=== PATIENT | male | born 1980 | race Caucasian/White ===

== ENCOUNTER 2019-01-27 21:51 | Emergency (ER) | payer OTHER ==
[2019-01-27] MEDS ORDERED: IPRATROPIUM/ALBUTEROL 3 ML DEYVIAL IH ONE (22:31)
--- NOTE | 2019-01-27 22:51 | EDPHY ---
H & P Stated Complaint: ST, Cough Time Seen by Provider: 01/27/19 22:24 HPI/ROS: HPI The patient presents with cough associated with shortness of breath and sore throat. The patient says he has been smoking cigarettes heavily over the last 2 weeks, going through a break-up been smoking about 1/2 pack of cigarettes a day. He has a cough since he began smoking which is dry and mild. Last night he was asleep in bed and awoke gasping for air. He says this induced a panic attack and he felt he could not catch his breath. This resolves over the course of the day the patient noticed some wheezing and pain in his neck near his Pepe's apple. He does not have any difficulty swallowing or moving his neck. He has not had a fever. He says he has been playing violin for about 8 hr today and wonders if the turning of his neck to the side has caused his sore throat. REVIEW OF SYSTEMS 10 systems were reviewed and negative with the exception of the elements mentioned in the history of present illness. PMHx: Healthy Soc Hx: Works as a musician, 1/2 pack per day smoking, 5 beers a night, minimal marijuana use PHYSICAL General Appearance: Alert, no distress Eyes: Pupils equal and round no pallor or injection ENT, Mouth: Mucous membranes moist, posterior pharynx is without erythema or exudate, full range of motion Respiratory: There are no retractions, mild inspiratory and expiratory wheezes in all lung [place] Cardiovascular: Regular rate and rhythm Gastrointestinal: Abdomen is soft and non-tender, no masses, bowel sounds normal Neurological: A&O, moves all extremities Skin: Warm and dry, no rashes Musculoskeletal: Neck is supple non tender Extremities: symmetrical, full range of motion Psychiatric: Patient is oriented X 3, there is no agitation Source: Patient Exam Limitations: No limitations - Personal History Current Tetanus/Diphtheria Vaccine: Yes Current Tetanus Diphtheria and Acellular Pertussis (TDAP): Yes - Medical/Surgical History Hx Asthma: No Hx Chronic Respiratory Disease: No Hx Diabetes: No Hx Cardiac Disease: No Hx Renal Disease: No Hx Cirrhosis: No Hx Alcoholism: No Hx HIV/AIDS: No Hx Splenectomy or Spleen Trauma: No Other PMH: neg - Social History Smoking Status: Current every day smoker Constitutional: Initial Vital Signs Temperature (C) 36.8 C 01/27/19 21:56 Heart Rate 76 05/28/19 21:56 Respiratory Rate 16 01/27/19 21:56 Blood Pressure 136/76 H 01/27/19 21:56 O2 Sat (%) 96 01/27/19 21:56 O2 Delivery Mode Room Air Allergies/Adverse Reactions: bee stings Allergy (Mild, Uncoded 02/02/15 14:01) localized swelling Home Medications: Medication Instructions Recorded NK [No Known Home Meds] 02/02/15 Medical Decision Making - Diagnostics Imaging Results: Imaging Impressions Chest X-Ray 01/27/19 22:31 Impression: No acute intrathoracic process. Imaging: I viewed and interpreted images myself Differential Diagnosis: 38-year-old male with recent increased smoking presents with cough, wheezing, episode of shortness of breath that awoke him from sleep last night. He has no ongoing chest pain or shortness of breath. He does have wheezing in his lung tomlinson. Plan for DuoNeb, chest x-ray. Differential diagnosis includes URI, foreign body, asthma with exacerbation. Chest x-ray is unremarkable. After receiving DuoNeb I reexamined the patient and his lungs now sound clear. I suspect he has bronchitis with increase in his cigarette smoking as a contributing factor. I will send him home with an albuterol inhaler. - Data Points Medications Given: Discontinued Medications Albuterol/Ipratropium (Duoneb) 3 ml IH EDNOW ONE Stop: 01/27/19 22:32 Last Admin: 01/27/19 23:06 Dose: 3 ml Departure - Departure Disposition: Home, Routine, Self-Care Clinical Impression: Wheezing, Cough Condition: Good Instructions: How to Stop Smoking (ED), Albuterol (By breathing) Additional Instructions: It appears that your wheezing could be caused by some of the cigarette smoking you're doing. It is very important that you stop smoking. Please return to the emergency department if your worse in any way. Referrals: Ashley Villarreal MD [Medical Doctor] - As per Instructions
[2019-01-27] MEDS ORDERED: ALBUTEROL INH PREPACK MDI TAKEHOME ONE (23:21)
[2019-01-27 23:35] VITALS: BP 121/76
== END 2019-01-27 23:33 | disposition home or self-care (01) ==
DX: R06.2 Wheezing (principal); R05 Cough; F17.210 Nicotine dependence, cigarettes, uncomplicated